=== PATIENT | female | born 1975 | race Caucasian/White ===

== ENCOUNTER 2020-04-13 12:01 | Emergency (ER) | payer BC ==
[~2020-04-13] VITALS: Ht 160 cm; Wt 95.3 kg
[2020-04-13 12:08] VITALS: BP_SYST 136
[2020-04-13] MEDS ORDERED: KETOROLAC TROMETHAMINE 15 MG VIAL IVP ONE (12:30)
[2020-04-13 12:46] LABS: BASOPHILS % (AUTO) 0.3 % (0.0-2.0); EOSINOPHILS # (AUTO) 0.1 K/uL (0.0-0.4); EOSINOPHILS % (AUTO) 1.3 % (0.0-4.0); HEMATOCRIT 40.3 % (36-48); HEMOGLOBIN 13.8 g/dL (12.0-16.0); LYMPHOCYTES # (AUTO) 2.1 K/uL (1.0-5.5); LYMPHOCYTES % (AUTO) 35.3 % (20.5-51.5); MEAN CORPUSCULAR HEMOGLOBIN 32 pg (27-31); MEAN CORPUSCULAR HGB CONC 34 % (32-36); MEAN CORPUSCULAR VOLUME 94 fL (79.0-98.0); MONOCYTES # (AUTO) 0.4 K/uL (0.0-1.0); MONOCYTES % (AUTO) 7.4 % (1.7-9.3); NEUTROPHILS # (AUTO) 3.4 K/uL (1.8-7.7); NEUTROPHILS % (AUTO) 55.7 % (40.0-70.0); PLATELET COUNT (AUTO) 258 K/uL (130-430); RED BLOOD CELL COUNT(AUTO) 4.27 MIL/uL (4.2-6.2); RED CELL DISTRIBUTION WIDTH 12.4 % (9.0-15.0)
[2020-04-13 13:01] LABS: CALCIUM 8.6 mg/dL (8.4-11.0); CREATININE 0.58 mg/dL (0.55-1.30); POTASSIUM 4.6 mmol/L (3.5-5.1)
[2020-04-13 13:07] LABS: ALBUMIN 3.7 g/dL (3.4-4.8); TOTAL BILIRUBIN 0.2 mg/dL (0.0-1.0)
[2020-04-13 13:30] LABS: BILIRUBIN,URINE NEGATIVE (NEGATIVE); BLOOD, URINE NEGATIVE (NEGATIVE); CLARITY/URINE CLEAR (CLEAR); COLOR,URINE YELLOW (YELLOW); GLUCOSE,URINE NEGATIVE (NEGATIVE); KETONES,URINE NEGATIVE (NEGATIVE); LEUKOCYTE ESTERASE ,URINE NEGATIVE (NEGATIVE); NITRITE, URINE NEGATIVE (NEGATIVE); PH,URINE 7.5 (5.0-8.0); PROTEIN URINE NEGATIVE (NEGATIVE); UROBILINOGEN,URINE 0.2 (0.2-1.0)
[2020-04-13 15:12] VITALS: BP_SYST 131
== END 2020-04-13 15:16 | disposition home or self-care (01) ==
LOC: SED 12:01
DX: R10.31 Right lower quadrant pain (principal); R10.32 Left lower quadrant pain
CPT/HCPCS: 36415; 74177; 76376; 80053; 81003; 83690; 85025; 96374; 99284; J1885; Q9967

== ENCOUNTER 2021-11-09 10:43 | Emergency (ER) | payer BC ==
[2021-11-09 11:15] VITALS: BP_SYST 130
--- NOTE | 2021-11-09 11:15 | NUR ---
Pt triaged and placed in waiting room pending MD eval/bed availability.
--- NOTE | 2021-11-09 11:56 | NUR ---
ER Dr Robles to waiting area to evaluate patient.
[2021-11-09] MEDS ORDERED: MORPHINE 4 MG INJ. 4 MG/ML VIAL IM ONE (12:00)
--- NOTE | 2021-11-09 12:57 | NUR ---
Patient to ER bed 6 for evaluation. Side rails up. Report given to [facility].
[2021-11-09] MEDS ORDERED: LIDOCAINE 1%, 20 ML MDV 20 ML ONE (13:13)
[2021-11-09] MEDS ORDERED: LIDOCAINE 1% 10 MG/ML, 20 ML MDV SUBCUT ONE (13:15)
[2021-11-09] MEDS ORDERED: KETOROLAC TROMETHAMINE 30 MG VIAL ONE (13:16)
--- NOTE | 2021-11-09 13:17 | NUR ---
PT REFUSED MORPHINE WHICH WAS ORDERED BY DR. CONNELL. PT REQUESTED TORADOL 30MG IM. DR. CONNELL WAS BEDSIDE. TORADOL 30MG GIVEN IM. DR. CONNELL BEDSIDE TO DO I&D FOR LEFT INJUNAL ABCESS.
[2021-11-09] MEDS ORDERED: KETOROLAC TROMETHAMINE 30 MG VIAL IM ONE (13:45)
[2021-11-09 14:06] LABS: BILIRUBIN,URINE NEGATIVE (NEGATIVE); BLOOD, URINE NEGATIVE (NEGATIVE); CLARITY/URINE CLEAR (CLEAR); COLOR,URINE YELLOW (YELLOW); GLUCOSE,URINE NEGATIVE (NEGATIVE); KETONES,URINE TRACE (NEGATIVE); LEUKOCYTE ESTERASE ,URINE NEGATIVE (NEGATIVE); NITRITE, URINE NEGATIVE (NEGATIVE); PROTEIN URINE NEGATIVE (NEGATIVE); UROBILINOGEN,URINE 0.2 (0.2-1.0)
[2021-11-09] MEDS ORDERED: METH-634 PO (15:14)
[2021-11-09] MEDS ORDERED: IBUP-1969 PO (15:14)
[2021-11-09 15:40] VITALS: BP_SYST 124
--- NOTE | 2021-11-09 15:42 | NUR ---
Patient given written and verbal discharge instructions and verbalizes understanding. ER MD discussed with patient the results and treatment provided. Patient in stable condition. ID arm band removed. IV catheter removed intact and dressing applied, no active bleeding. Patient educated on pain management and to follow up with PMD. Pain Scale 1. Opportunity for questions provided and answered. Medication side effect fact sheet provided.
== END 2021-11-09 15:40 | disposition home or self-care (01) ==
LOC: SED 10:43
DX: L02.214 Cutaneous abscess of groin (principal); M54.50 Low back pain, unspecified; M54.9 Dorsalgia, unspecified
CPT/HCPCS: 10060; 72100; 81003; 81025; 96372; 99284; J1885; J2001

== ENCOUNTER 2022-02-28 09:55 | Emergency (ER) | payer BC ==
[~2022-02-28] VITALS: Ht 160 cm; Wt 99.8 kg
[~2022-02-28 09:55] MED LIST: IBUP-1969 PO; METH-634 PO
--- NOTE | 2022-02-28 10:00 | NUR ---
PT BIB SELF AWAKE AND ALERT, AO X4. NO SOB OR DISTRESS. PERRLA. PT C/O SORE THROAT X2 DAYS. PAIN 09/08.
--- NOTE | 2022-02-28 10:05 | NUR ---
MD DR ORTEGA AT BEDSIDE
--- NOTE | 2022-02-28 10:23 | NUR ---
STREP AND COVID SWABS OBTAINED AND SENT TO THE LAB AT 10:16.
[2022-02-28 10:31] VITALS: BP_SYST 139
[2022-02-28 10:42] LABS: STREPTOCOCCUS A SCREEN (RAPID) POSITIVE (NEGATIVE)
[2022-02-28] MEDS ORDERED: IBUP-1969 PO (11:02)
[2022-02-28] MEDS ORDERED: PENICILLIN G BENZATHINE 1.2 MMU/2 ML SYR IM ONE (11:15)
[2022-02-28 11:30] VITALS: BP_SYST 135
--- NOTE | 2022-02-28 11:31 | NUR ---
Patient given written and verbal discharge instructions and verbalizes understanding. ER MD discussed with patient the results and treatment provided. Patient in stable condition. ID arm band removed. Patient educated on pain management and to follow up with PMD. Pain Scale 4/10 . Opportunity for questions provided and answered. Medication side effect fact sheet provided.
== END 2022-02-28 11:31 | disposition home or self-care (01) ==
LOC: SED 09:55
DX: J03.90 Acute tonsillitis, unspecified (principal); Z79.899 Other long term (current) drug therapy; Z20.822 Contact with and (suspected) exposure to COVID-19
CPT/HCPCS: 99283; 87426; 86403; 36415; 96372; J0561

== ENCOUNTER 2022-04-05 23:54 | Emergency (ER) | payer BC ==
[~2022-04-05] VITALS: Ht 162.6 cm; Wt 99.8 kg
[2022-04-06 00:17] VITALS: BP_SYST 107
--- NOTE | 2022-04-06 00:25 | NUR ---
Patient triaged and placed in waiting room. VS checked and patient appears in no acute distress at this time. Accompanied by self , awaiting available bed, and MD notified of need for MSE.
--- NOTE | 2022-04-06 00:31 | NUR ---
Patient to ER bed 2 for evaluation and treatment
[2022-04-06] MEDS ORDERED: IBUPROFEN 600 MG TABLET PO ONE (00:45)
[2022-04-06] MEDS ORDERED: LIDOCAINE VISCOUS 2%, 15 ML UDC MM ONE (02:00)
[2022-04-06] MEDS ORDERED: DEXAMETHASONE SOD PHOSPHATE 10 MG/ML VIAL IM ONE (02:00)
[2022-04-06 03:10] VITALS: BP_SYST 132
--- NOTE | 2022-04-06 03:11 | NUR ---
Patient given written and verbal discharge instructions and verbalizes understanding. ER MD discussed with patient the results and treatment provided. Patient in stable condition. ID arm band removed. IV catheter removed intact and dressing applied, no active bleeding. Rx of [n/a] given. Patient educated on pain management and to follow up with PMD. Pain Scale [0/10]. Opportunity for questions provided and answered. Medication side effect fact sheet provided.
[2022-04-06] MEDS ORDERED: PRELO PO (03:13)
[2022-04-06] MEDS ORDERED: IBUP100O21 PO (03:13)
[2022-04-06] MEDS ORDERED: ACET12.55 PO (03:13)
== END 2022-04-06 03:08 | disposition home or self-care (01) ==
LOC: SED 23:54
DX: J02.8 Acute pharyngitis due to other specified organisms (principal); R05.9 Cough, unspecified; R09.81 Nasal congestion; Z79.899 Other long term (current) drug therapy; Z20.822 Contact with and (suspected) exposure to COVID-19
CPT/HCPCS: 99283; 87426; 36415; 87804 ×2; 96372; J2001; J1100